=== PATIENT | male | born 1970 | race Hispanic/Latino ===

== ENCOUNTER 2017-08-06 21:27 | Inpatient (IN) | payer OTHER, SELFPAY ==
[2017-08-06 22:31] LABS: #Monocytes 0.3 thou/uL (0.11-0.59); #Neutrophils 5.8 thou/uL (1.40-6.50); %Basophils 0.3 % (0.0-1.0); %Eosinophils 0.2 % (0.0-10.0); %Lymphocytes 14.1 % (21.0-51.0); %Monocytes 4.6 % (0.0-10.0); %Neutrophils 80.9 % (42.0-75.0); Hemoglobin 16.1 g/dL (14.0-18.0); Mean Corpuscular HGB CONC 33.6 g/dL (32.0-36.0); Mean Corpuscular Hemoglobin 33.3 pg (27.0-31.0); Mean Corpuscular Volume 99.1 fl (80.0-94.0); Mean Platelet Volume 10.8 fL (7.4-10.4); Platelet Count 322 thou/uL (130-400); RBC Distribution Width 14.9 % (11.5-14.5); Red Blood Cell (RBC) Count 4.84 mill/uL (4.70-6.10); White Blood Cell (WBC) Count 7.2 thou/uL (4.8-10.8)
[2017-08-06 23:57] LABS: Base Excess-Venous -6.9 mmol/L (0 (+/- 2.5)); Bicarbonate (HCO3v) 18.5 mmol/L (1.0-85.0); CO2 Tension (PvCO2) 36.4 mmHg (41.0-51.0); Calcium, Ionized 1.07 mmol/L (1.12-1.32); Potassium 5.1 mmol/L (3.4-4.7); T. Carbon Dioxide 19.7 mmol/L (1.0-85.0); pH (Venous) 7.315 (7.35-7.45); vO2 Saturation-calc 60.7 % (94-98)
[2017-08-07 00:10] LABS: Albumin 4.3 g/dL (3.5-5.0)
[2017-08-07 00:11] LABS: Chloride 92 mmol/L (98-107); Potassium 5.1 mmol/L (3.5-5.1); Sodium 135 mmol/L (136-145)
[2017-08-07 00:13] LABS: Globulin 3.4 g/dL (2.4-3.5); Protein, Total 7.7 g/dL (6.0-8.3)
[2017-08-07 00:14] LABS: Anion Gap 31 mmol/L (10-20); Bilirubin, Total 0.5 mg/dL (0.2-1.2); Carbon Dioxide 17 mmol/L (22-29)
[2017-08-07 00:15] LABS: Alkaline Phosphatase 91 U/L (40-150)
[2017-08-07 00:16] LABS: BUN (Urea Nitrogen) 16 mg/dL (8.9-20.6); Calc. Creatinine Clearance 0 mL/min (70-130); Estimated GFR-MDRD 40
[2017-08-07 00:18] LABS: ALT (SGPT) 17 U/L (8-55); AST (SGOT) 10 U/L (5-34); Lipase 29 U/L (8-78)
[2017-08-07] MEDS ORDERED: Insulin Regular 300 UNITS/3 ML VIAL ONE ×2 (00:19→00:28)
[2017-08-07] MEDS ORDERED: Insulin Regular 100 units/100 ml in NS IVPB SCH (00:30)
[2017-08-07] MEDS ORDERED: Mag-Al 1200 mg/1200 mg/30 ML UDCUP ONE (00:34)
[2017-08-07] MEDS ORDERED: Lidocaine Viscous Sol 2% 15 ml UD Cup ONE (00:34)
--- NOTE | 2017-08-07 00:49 | PDOC.FPRHP ---
- History of Present Illness Chief Complaint: weakness History of Present Illness: This is a 46 y/o M with no PMHx or prior medical care who presents to the ED due to weakness that had been going on for 3 weeks. The patient reports that he just hasn't been feeling well and has lost about 20 pounds in that time period. The patient reports that he got acutely worse in the past 3 days where he had nausea, vomiting, blurry vision, polyuria, polydipsia, chills, abdominal pain, and reports that it has been harder to catch his breath. The patient had never had this happen before. He has been able to keep liquids down, but no solid foods. He reports that his abdominal pain is in the epigastric region and has been constant over the past 3 days, but was worse after eating. The patient went to a clinic to be evaluated for this today and was told he had diabetes, which he did not know about, but he was not given any medication. He denies any fevers. ED Course: The patient was evaluated in the ED by Dr. Orozco and Dr. Gonzalez and was given Humulin 5 units, Novolin gtt, NS 3L, GI cocktail. - Allergies/Adverse Reactions Allergies Allergy/AdvReac Type Severity Reaction Status Date / Time No Known Drug Allergies Allergy Unverified 08/07/ 00:20 - Home Medications Comments: None - History PMHx: No known PMHx PSHx: None FHx: Mom - DM Social: Drinks more than 5 tall boy beers per day, last drink was on Sunday due to the N/V. Smokes 12 cigarettes/day since he was 19 y/o. PCP: none - Review of Systems General: reports: fever/chills (reports chills, denies fever), weight/appetite/ sleep changes (reports weight and appetite changes), fatigue Eyes: reports: vision changes. denies: eye pain ENT: reports: nasal congestion, rhinorrhea Respiratory: reports: shortness of breath. denies: cough Cardiovascular: denies: chest pain, edema Gastrointestinal: reports: nausea, vomiting, abdominal pain. denies: diarrhea, constipation Genitourinary: reports: polyuria. denies: dysuria Skin: denies: rashes, lesions Musculoskeletal: denies: pain, tenderness Neurological: denies: numbness, seizure - Vital signs BP: 117/78 HR: 88 RR: 16 Tmax: 97.7 Pox: 99% on RA Wt: 47.17kg - Physical Exam Constitutional: NAD, awake, alert and oriented, well developed HEENT: normocephalic and atraumatic, PERRLA, EOMI, grossly normal vision, grossly normal hearing, normal nasal mucosa, MMM, oropharynx clear, other (mild scleral icterus, scaring of the R TM) Neck: supple, no LAD Heart: RRR, normal S1/S2, no murmurs/rubs/gallops, pulses present, no edema Lungs: CTAB, no respiratory distress, good air movement, no rales/rhonchi, no wheezing Abdomen: soft (mildly tender to palpation diffusely, no rebound or guarding), bowel sounds present, no masses/distention Musculoskeletal: normal structure, normal tone Neurological: no focal deficit, CN II-XII intact Skin: good turgor, capillary refill <2 seconds Psychiatric: normal mood and affect, good judgment and insight, intact recent and remote memory FMR H&P: Results - Labs Result Diagrams: 08/06/17 20:19 08/06/17 23:47 Lab results: WBC 7.2 thou/uL (4.8-10.8) 08/06/17 20:19 Hgb 16.1 g/dL (14.0-18.0) 08/06/17 20:19 Hct 48.0 % (42.0-52.0) 08/06/17 20:19 MCV 99.1 fl (80.0-94.0) H 08/06/17 20:19 Plt Count 322 thou/uL (130-400) 08/06/17 20:19 Neutrophils % 80.9 % (42.0-75.0) H 08/06/17 20:19 VBG pCO2 36.4 mmHg (41.0-51.0) L 08/06/17 23:56 VBG pO2 34.0 mmHg (35.0-45.0) L 08/06/17 23:56 Sodium 135 mmol/L (136-145) L 08/06/17 23:47 Potassium 5.1 mmol/L (3.5-5.1) 08/06/17 23:47 Chloride 92 mmol/L (98-107) L 08/06/17 23:47 Carbon Dioxide 17 mmol/L (22-29) L 08/06/17 23:47 BUN 16 mg/dL (8.9-20.6) 08/06/17 23:47 Creatinine 1.80 mg/dL (0.6-1.3) H 08/06/17 23:47 Calcium 10.0 mg/dL (7.8-10.44) 08/06/17 23:47 Total Bilirubin 0.5 mg/dL (0.2-1.2) 08/06/17 23:47 AST 10 U/L (5-34) 08/06/17 23:47 ALT 17 U/L (8-55) 08/06/17 23:47 Alkaline Phosphatase 91 U/L (40-150) 08/06/17 23:47 Serum Total Protein 7.7 g/dL (6.0-8.3) 08/06/17 23:47 Albumin 4.3 g/dL (3.5-5.0) 08/06/17 23:47 Lipase 29 U/L (8-78) 08/06/17 23:47 - EKG Interpretation EKG: NSR with rate 79, Rightward axis, non-specific T wave changes FMR H&P: A/P - Problem List (1) DKA (diabetic ketoacidoses) Current Visit: Yes Status: Acute Code(s): E13.10 - OTH DIABETES MELLITUS WITH KETOACIDOSIS WITHOUT COMA Qualifiers: Diabetes mellitus type: type 2 Diabetes mellitus complication detail: without coma Qualified Code(s): E11.10 - Type 2 diabetes mellitus with ketoacidosis without coma (2) Alcohol abuse Current Visit: Yes Status: Acute Code(s): F10.10 - ALCOHOL ABUSE, UNCOMPLICATED (3) Tobacco abuse Current Visit: Yes Status: Acute Code(s): Z72.0 - TOBACCO USE (4) PRICILA (acute kidney injury) Current Visit: Yes Status: Acute Code(s): N17.9 - ACUTE KIDNEY FAILURE, UNSPECIFIED (5) Gastritis Current Visit: Yes Status: Acute Code(s): K29.70 - GASTRITIS, UNSPECIFIED, WITHOUT BLEEDING Qualifiers: Gastritis type: alcoholic Chronicity: unspecified Gastritis bleeding: without bleeding Qualified Code(s): K29.20 - Alcoholic gastritis without bleeding - Plan DKA The patient has no h/o diabetes. This is likely type II due to the patient's age , but cannot rule out type I. No signs/symptoms of infection at this time, so unknown trigger. Initial labs showed Anion gap 26, Glucose 784, beta- hydroxybutyrate 11.8. -DKA protocol, aggressive fluids and insulin gtt. Will continue insulin gtt until anion gap closes. -Accuchecks q1h -BMP's q4h -Replete electrolytes prn -Check mag and phosphorous -A1c -UA, CXR to r/o infection -Consult case management to help patient with diabetic supplies, medications, establishing with PCP as uninsured -Consider checking c-peptide to r/o DMI if patient appears to respond accordingly PRICILA This is likely 2/2 dehydration with DKA -Will give aggressive fluids -Repeat BMP Alcohol Abuse The patient drinks >5 tall boy beers each day. Last drink was Sunday evening prior to admission. No signs/symptoms of withdrawal at this time. -ASE protocol -Thiamine, folate, multivitamin -UDS -Counseling about cessation Tobacco Abuse -Nicoderm patch -Counseling about cessation Abdominal Pain This is likely 2/2 Alcoholic Gastritis, lipase and liver enzymes were WNL. -Protonix -Serial abdominal exams and consider CT abdomen/pelvis if develops acute abdomen VTE ppx: Lovenox Code Status: Full Symptomatic meds will be provided Disposition/LOS: Admit to IMCU, length of stay likely 2 days FMR H&P: Upper Level - Plan Date/Time: 08/07/17 0047 Lorena Jhaveri, PGY3, have evaluated this patient and agree with findings/plan as outlined by manufacturing intern resident. Pertinent changes/additions are listed here. This is a 46yo HM w/ no PMH presents w/ 3 day history of nausea, vomiting, muscle cramps, abdominal pain, dizziness, just not feeling well. He went to the clinic and was told he had new diagnosis of diabetes and anemia, however did not receive any medications. Because he wasn't feeling better, he came to the ER. PE: Gen: Mild confusion. Non-toxic appearing. HEENT: R ear scaring. No tonsillar exudates or edema. CV: RRR. No murmurs Resp: Crackles RLL. No rhonchi or wheezing. Abd: Soft, generalized Ext: No edema or cyanosis. A/P: 1) DKA - DKA protocol with insulin, fluids and K supplementation as needed. Q4hr BMP's. F/u with CXR, UA and cultures. 2) New diagnosis of Diabetes - DKA protocol. Consult case management for diabetic supplies and medications for discharge. Will likely require insulin upon discharge. HgA1c 3) ETOH Abuse - Counselling on cessation. GABE protocol. Thiamine, Folate 4) Tobacco abuse - Nicotine patch PRN. Counselling on cessation. 5) PRICILA verses CKD - Fluids. F/u with BMP in am. 6) Abdominal pain - likely 2/2 DKA. Serial abdominal exams. Consider CT abdomen if does not improve or worsens. Attending Addendum - Attending Addendum Date/Time: 08/07/17 0157 I personally evaluated the patient and discussed the management with Dr. Tejeda on 08/07/17. I agree with the History, Examination, Assessment and Plan documented above with any addition or exceptions noted below. Patient with new-onset DM and DKA. pH 7.3, K 5.1, Cr 1.8. Initial glucose 738 , improved to 430s with insulin bolus. On insulin drip now. Abdominal pain improved with PPI, no acute abdomen concerns. Continue to monitor. Initiate DKA protocol with insulin drip, aggressive fluid resuscitation, and close monitoring of electrolytes.
[2017-08-07 00:52] LABS: CKMB 1.2 ng/mL (0-6.6); Troponin I Less than 0.010 ng/mL (< 0.028)
[2017-08-07 01:33] LABS: Bilirubin Negative (Negative); Blood, Urine Negative (Negative); Clarity CLEAR (Clear); Glucose, Urine (Dipstick) >=1000 mg/dL (Negative); Leukocyte Negative (Negative); Nitrite Negative (Negative); Protein, Urine (Dipstick) Negative (Neg-Trace); Specific Gravity, Urine 1.033 (1.002-1.036); Urobilinogen 0.2 mg/dL (0.2-1.0)
[2017-08-07 01:42] LABS: Amphetamine Not Detected (NotDetected); Barbiturates Screen Not Detected (NotDetected); Benzodiazepine Screen Not Detected (NotDetected); Cocaine Metabolite Screen Not Detected (NotDetected); Medtox Control Line Valid? VALID (VALID); Medtox Reader # READER 4; Methadone Not Detected (NotDetected); Methamphetamine Not Detected (NotDetected); Opiate Screen Not Detected (NotDetected); Oxycodone Screen Not Detected (NotDetected); Phencyclidine (PCP) Not Detected (NotDetected); THC/Cannabinoid Screen Not Detected (NotDetected); Tricyclic Screen Not Detected (NotDetected)
[2017-08-07] MEDS ORDERED: Dextrose 5 %-0.45 % NaCl 1,000 ML IV PRN (01:45)
[2017-08-07] MEDS ORDERED: D5 1/2 NS w/20 mEq KCL 1,000 ML IV PRN (01:45)
[2017-08-07] MEDS ORDERED: Dextrose 5% in Water 1,000 ML IV PRN ×2 (01:45→08:57)
[2017-08-07] MEDS ORDERED: CCU Electrolyte Replacement 1 EACH IVPB SCH (01:45)
[2017-08-07] MEDS ORDERED: Sodium Chloride 0.9% 1,000 ML IV PRN ×4 (01:45)
[2017-08-07] MEDS ORDERED: Ondansetron HCl/PF 4 MG/2 ML Vial IVP PRN (01:45)
[2017-08-07] MEDS ORDERED: Dextrose 50% Abboject 50 ML SYRINGE SLOW IVP PRN ×2 (01:45→08:57)
[2017-08-07] MEDS ORDERED: NS 0.9% w/ 20 MEQ KCL 1,000 ML IV PRN ×2 (01:45)
[2017-08-07] MEDS ORDERED: Ondansetron ODT 4 MG TAB PO PRN (01:45)
[2017-08-07 01:49] LABS: Glucose 784 mg/dL (70-105)
[2017-08-07] MEDS ORDERED: Magnesium 2 GM/NS 0.9% 100 ML 2 GM in Premix Bag 1 BAG IVPB PRN (02:13)
[2017-08-07] MEDS ORDERED: Potassium Phosphate 15 MMOL in Sodium Chloride 0.9% 250 ML 250 ML IV PRN (02:13)
[2017-08-07] MEDS ORDERED: Potassium Phosphate 9 MMOL in Sodium Chloride 0.9% 100 ML IVPB PRN (02:13)
[2017-08-07] MEDS ORDERED: Potassium Phosphate 12 MMOL in Sodium Chloride 0.9% 250 ML 250 ML IV PRN (02:13)
[2017-08-07] MEDS ORDERED: CCU ELECTROLYTE REPLACEMENT PROTOCOL FS PRN (02:13)
[2017-08-07] MEDS ORDERED: Potassium Chloride 20 MEQ TAB PO PRN (02:13)
[2017-08-07] MEDS ORDERED: Potassium Chloride 40 MEQ in Sodium Chloride 0.9% 250 ML 250 ML IVPB PRN (02:13)
[2017-08-07] MEDS ORDERED: Potassium Chloride 40 MEQ in Premix Bag 1 BAG IVPB PRN (02:13)
[2017-08-07] MEDS ORDERED: Magnesium Oxide 400 MG TAB PO PRN ×2 (02:13)
[2017-08-07 02:20] LABS: Magnesium 2.3 mg/dL (1.6-2.6); Phosphorus 4.8 mg/dL (2.3-4.7)
[2017-08-07 02:20] LABS: Hemoglobin A1c 15.9 % (4.0-6.0)
[2017-08-07 03:37] LABS: #Lymphocytes 1.4 thou/uL (1.20-3.40); #Monocytes 0.3 thou/uL (0.11-0.59); #Neutrophils 4.2 thou/uL (1.40-6.50); %Basophils 0.7 % (0.0-1.0); %Eosinophils 0.4 % (0.0-10.0); %Lymphocytes 23.6 % (21.0-51.0); %Monocytes 5.6 % (0.0-10.0); %Neutrophils 69.8 % (42.0-75.0); Hemoglobin 13.7 g/dL (14.0-18.0); Mean Corpuscular HGB CONC 34.8 g/dL (32.0-36.0); Mean Corpuscular Hemoglobin 33.1 pg (27.0-31.0); Mean Platelet Volume 8.4 fL (7.4-10.4); Platelet Count 289 thou/uL (130-400); RBC Distribution Width 11.6 % (11.5-14.5); Red Blood Cell (RBC) Count 4.15 mill/uL (4.70-6.10)
[2017-08-07 03:50] LABS: Anion Gap 17 mmol/L (10-20); BUN (Urea Nitrogen) 12 mg/dL (8.9-20.6); Calc. Creatinine Clearance 0 mL/min (70-130); Calcium 9.4 mg/dL (7.8-10.44); Carbon Dioxide 24 mmol/L (22-29); Chloride 106 mmol/L (98-107); Estimated GFR-MDRD 61; Glucose 367 mg/dL (70-105); Potassium 3.6 mmol/L (3.5-5.1); Sodium 143 mmol/L (136-145)
--- NOTE | 2017-08-07 07:54 | RAD ---
PA AND LATERAL VIEWS OF CHEST: Date: 08/07/17 HISTORY: Cough. FINDINGS: The heart size is normal. The lungs are well expanded without focal areas of consolidation, pneumotho rax, or pleural effusions. No acute osseous abnormalities are seen. IMPRESSION: No radiographic evidence of acute cardiopulmonary process. POS: OFF
[2017-08-07 07:59] VITALS: BMI 18.3
[2017-08-07] MEDS ORDERED: FLU VACC QS2017-18 36 mo. & older 0.5 ML SYRINGE IM ONE (08:45)
[2017-08-07] MEDS ORDERED: Prevnar 13-Val Conj/PF 0.5 ML SYRINGE IM ONE (08:45)
[2017-08-07 08:58] LABS: Anion Gap 12 mmol/L (10-20); BUN (Urea Nitrogen) 10 mg/dL (8.9-20.6); Calc. Creatinine Clearance 57 mL/min (70-130); Calcium 8.9 mg/dL (7.8-10.44); Carbon Dioxide 27 mmol/L (22-29); Chloride 107 mmol/L (98-107); Estimated GFR-MDRD 77; Glucose 328 mg/dL (70-105); Potassium 3.9 mmol/L (3.5-5.1); Sodium 142 mmol/L (136-145)
[2017-08-07] MEDS ORDERED: Enoxaparin Sodium 30 MG/0.3 ML SYRINGE SC SCH (09:00)
[2017-08-07] MEDS ORDERED: metFORMIN 500 MG TAB PO SCH ×2 (09:30→17:00)
[2017-08-07] MEDS: Nicotine 14 MG PATCH TD SCH (09:52)
[2017-08-07] MEDS: Multivitamin W/ Minerals 1 TAB PO SCH (09:52)
[2017-08-07] MEDS: Folic Acid 1 MG TAB PO SCH (09:53)
[2017-08-07] MEDS ORDERED: Insulin Detemir 100 UNITS/ML 10 UNITS in Pre-Filled Syringe 1 EACH SC SCH ×2 (10:00→21:00)
[2017-08-07] MEDS: Dextrose 5 %-0.45 % NaCl 1,000 ML IV SCH ×2 (10:11→16:58)
--- NOTE | 2017-08-07 11:51 | CON ---
DATE OF CONSULTATION: 08/07/2017 SERVICE: Pulmonary Medicine. REASON FOR CONSULTATION: DKA. HISTORY OF PRESENT ILLNESS: The patient is a 46-year-old male with past medical history significant for type 2 diabetes mellitus. He suggests to me that this was diagnosed over 3 years ago. That being said, he has been on any medications. Unfortunately, he presented to the hospital with significant fatigue, and lack of energy. He had some nausea. He was having some episodes of dry heaving. He has been drinking a lot and peeing a lot. He has had some blurred vision. He presented to the Emergency Department and had fairly classic symptoms consistent with his hyperglycemic episode with diabetic ketoacidosis. Overnight, he was given an insulin drip and rapidly corrected his anion gap. He was rehydrated, and the patient started feeling much better. This morning, he has got an appetite back. He denies any current nausea, vomiting, chest discomfort, shortness of breath, and is feeling much improved. PAST MEDICAL HISTORY: Type 2 diabetes mellitus, not on any medications. PAST SURGICAL HISTORY: None. SOCIAL HISTORY: He drinks 5 large beers a day. He denies any illicit drugs. He smokes about half-pack a day and has a [id number] history of smoking. He has no exposures to chemicals, dust, or asbestos. He is frequently back and forth between [place]. FAMILY HISTORY: Noncontributory. ALLERGIES: No known drug allergies. MEDICATIONS: List of his inpatient medications were reviewed. Multiple updates were made at this time. REVIEW OF SYSTEMS: General, head, ears, eyes, nose, throat, cardiovascular, respiratory, GI, , musculoskeletal, neurologic, and skin is negative except as mentioned in the HPI. PHYSICAL EXAMINATION: VITAL SIGNS: Afebrile, pulse 57, blood pressure 113/63, respirations 18, saturation 100% on room air. GENERAL: The patient is awake and alert, in no apparent distress. LUNGS: Excellent air entry. There is no prolonged expiratory phase, wheezing, rhonchi, or crackles present. HEART: Normal rate, regular. ABDOMEN: Soft, nontender, nondistended. Bowel sounds are positive. MUSCULOSKELETAL: No cyanosis or clubbing. There is no pitting in the bilateral lower extremities. NEUROLOGIC: Grossly nonfocal. LABORATORY DATA: WBC 6.0, hemoglobin 13.7, platelets 289,000. PH 7.31, pCO2 of 36, pO2 of 34, this was on a VBG. Creatinine has improved to 1.03, BUN 10. Basic metabolic profile is otherwise unremarkable. His bicarbonate is normal, and anion gap is closed. Vitamin B12 is greater than 2000. Glucose is running in the low 300 range. Liver function studies are unremarkable. Troponin is negative. Hemoglobin A1c 15.9. Beta hydroxybutyrate is 11.8. Urine drug screen is otherwise unremarkable. IMAGING DATA: Chest x-ray demonstrates no acute cardiopulmonary abnormality is identified. Cardiac silhouette is slender. Excellent costophrenic angles. No evidence of cephalization or pulmonary vascular congestion. ASSESSMENT: 1. Type 2 diabetes mellitus. 2. Diabetic ketoacidosis. 3. Alcohol abuse. 4. Tobacco abuse. 5. Acute kidney injury, resolved. DISCUSSION AND PLAN: The patient is doing fantastic from a cardiovascular and respiratory perspective. We will put him on long-acting insulin. We will also start some p.o. medications now that he cleared his acute kidney injury. He has an appetite, so we will feed him for lunch. If he tolerates p.o., he can be transitioned out of the IMCU, 2 hours after his insulin drip was discontinued , which can be done until 2 hours after his Levemir goes in. Pulmonary Critical Care will continue to follow if he remains in house for the time being. 70 minutes have been devoted to this patient in various activities. I personally reviewed all imaging studies and laboratory data noted within this document. For fifty percent of this time, I was interacting with the patient at the bedside or coordinating care with the care team. For the remainder of the time I was immediately available to the patient in the hospital unit. DC
[2017-08-07] MEDS: Insulin NPH/Reg Insulin Hm 300 UNITS/3 ML VIAL SC SCH ×3 (12:13→21:10)
--- NOTE | 2017-08-07 15:02 | ADD-PRG ---
DATE OF SERVICE: 08/07/2017 Please add this as an addendum to the note of Dr. Paresh Roberts. Mr. Min is a 46-year-old male, who was admitted to the ER this morning with diabetic ket oacidosis. He had previously not been treated for type 2 diabetes and has a questionable history goi ng back 3 years of such. In the event, he was admitted with a blood glucose in excess of 700, bicarb jessica is 17, pH is 7.31, and a very elevated beta hydroxybutyrate. He was started on an insulin infu marilin, and by the time I saw him later this morning, he had much improved. He was awake, alert, eatin g breakfast, and in no distress. Currently, his blood pressure is 113/67, his pulse rate is 80 and regular, respirations are 13 and no t labored. He is afebrile. His current labs show a sodium of 142, potassium 3.9, chloride 107. His bicarbonate is now 27. His anion gap is closed at 12. Glucose is 328. Diabetic ketoacidosis is resolved. We will switch him to subcutaneous insulin and advance diet as nam martinez.
[2017-08-07] MEDS ORDERED: Insulin Regular 300 UNITS/3 ML VIAL SC SCH (16:30)
--- NOTE | 2017-08-07 18:27 | PDOC.EVN ---
Event Note - Event Note Event Note: After 820 showed that anion gap had closed and bicarb was 17 patient was allowed to eat. At this time wean of insulin drip was started. Patient was started on NPH because of insurance issues. He was started on 15U am dose, 5U pm dose.
[2017-08-07 20:19] LABS: Anion Gap 7 mmol/L (10-20); BUN (Urea Nitrogen) 8 mg/dL (8.9-20.6); Calc. Creatinine Clearance 82 mL/min (70-130); Calcium 8.7 mg/dL (7.8-10.44); Carbon Dioxide 30 mmol/L (22-29); Chloride 104 mmol/L (98-107); Estimated GFR-MDRD Greater than 90; Glucose 189 mg/dL (70-105); Potassium 3.6 mmol/L (3.5-5.1); Sodium 137 mmol/L (136-145)
[2017-08-08] MEDS: Dextrose 5 %-0.45 % NaCl 1,000 ML IV SCH ×2 (00:45→08:28)
[2017-08-08 05:24] LABS: #Lymphocytes 1.2 thou/uL (1.20-3.40); #Monocytes 0.4 thou/uL (0.11-0.59); #Neutrophils 4.9 thou/uL (1.40-6.50); %Basophils 0.7 % (0.0-1.0); %Eosinophils 0.8 % (0.0-10.0); %Lymphocytes 17.7 % (21.0-51.0); %Monocytes 5.7 % (0.0-10.0); %Neutrophils 75.2 % (42.0-75.0); Hemoglobin 12.6 g/dL (14.0-18.0); Mean Corpuscular HGB CONC 34.1 g/dL (32.0-36.0); Mean Corpuscular Hemoglobin 32.9 pg (27.0-31.0); Mean Corpuscular Volume 96.3 fl (80.0-94.0); Mean Platelet Volume 8.5 fL (7.4-10.4); Platelet Count 227 thou/uL (130-400); RBC Distribution Width 11.6 % (11.5-14.5); Red Blood Cell (RBC) Count 3.83 mill/uL (4.70-6.10); White Blood Cell (WBC) Count 6.5 thou/uL (4.8-10.8)
[2017-08-08 05:33] LABS: Anion Gap 6 mmol/L (10-20); BUN (Urea Nitrogen) 7 mg/dL (8.9-20.6); Calc. Creatinine Clearance 86 mL/min (70-130); Calcium 8.5 mg/dL (7.8-10.44); Carbon Dioxide 30 mmol/L (22-29); Chloride 104 mmol/L (98-107); Estimated GFR-MDRD Greater than 90; Glucose 212 mg/dL (70-105); Magnesium 1.8 mg/dL (1.6-2.6); Potassium 3.5 mmol/L (3.5-5.1); Sodium 136 mmol/L (136-145)
[2017-08-08] MEDS: Nicotine 14 MG PATCH TD SCH (05:59)
[2017-08-08] MEDS: HumaLOG 300 UNITS/3 ML VIAL SC PRN ×2 (06:03→12:15)
[2017-08-08] MEDS ORDERED: Insulin Regular 300 UNITS/3 ML VIAL SC SCH (07:30)
[2017-08-08] MEDS ORDERED: metFORMIN 500 MG TAB PO SCH (08:00)
[2017-08-08] MEDS: Multivitamin W/ Minerals 1 TAB PO SCH (08:28)
[2017-08-08] MEDS: Folic Acid 1 MG TAB PO SCH (08:28)
[2017-08-08] MEDS: Insulin NPH/Reg Insulin Hm 300 UNITS/3 ML VIAL SC SCH (08:29)
--- NOTE | 2017-08-08 08:58 | PDOC.FM ---
- Subjective Subjective: This morning patient complains of sore throat. He denies headache, abdominal pain, or vomiting. He is tolerating PO. He will need more diabetic education as he is not grasping it as of yet. - Objective Vital Signs & Weight: Vital Signs (12 hours) Temp Pulse Resp BP Pulse Ox 08/08/17 07:43 97.9 F 56 L 16 116/74 08/08/17 06:18 97.8 F 60 18 116/66 98 08/08/17 00:00 98.7 F 61 18 113/55 L 98 Most Recent Monitor Data Heart Rate from ECG 64 NIBP 113/69 NIBP BP-Mean 85 Respiration from ECG 15 SpO2 100 I&O: 08/07/17 08/08/17 08/09/17 06:59 06:59 06:59 Intake Total 2775 Output Total 1100 Balance 1675 Result Diagrams: 08/08/17 04:40 08/08/17 04:40 Phys Exam - Physical Examination Constitutional: NAD HEENT: PERRLA, moist MMs Neck: no nodes, full ROM Respiratory: no wheezing, clear to auscultation bilateral Cardiovascular: RRR, no significant murmur Gastrointestinal: soft, non-tender, no distention, positive bowel sounds Musculoskeletal: no edema, pulses present Neurological: non-focal, moves all 4 limbs Lymphatic: no nodes Psychiatric: normal affect, A&O x 3 Skin: no rash, cap refill <2 seconds Dx/Plan (1) PRICILA (acute kidney injury) Code(s): N17.9 - ACUTE KIDNEY FAILURE, UNSPECIFIED Status: Acute (2) Alcohol abuse Code(s): F10.10 - ALCOHOL ABUSE, UNCOMPLICATED Status: Acute (3) DKA (diabetic ketoacidoses) Code(s): E13.10 - OTH DIABETES MELLITUS WITH KETOACIDOSIS WITHOUT COMA Status : Acute Qualifiers: Diabetes mellitus type: type 2 Diabetes mellitus complication detail: without coma Qualified Code(s): E11.10 - Type 2 diabetes mellitus with ketoacidosis without coma (4) Gastritis Code(s): K29.70 - GASTRITIS, UNSPECIFIED, WITHOUT BLEEDING Status: Acute Qualifiers: Gastritis type: alcoholic Chronicity: unspecified Gastritis bleeding: without bleeding Qualified Code(s): K29.20 - Alcoholic gastritis without bleeding (5) Tobacco abuse Code(s): Z72.0 - TOBACCO USE Status: Acute - Plan Plan: DKA- resolved - A1c 15.9 - Gap resolved - accuchecks in low 200s - NPH 15U am , 5U PM -insulin naive before hospitalization - metformin 1,000mg BID, PRICILA- resolved - Cr to 0.68 -Will give aggressive fluids -Repeat BMP Alcohol Abuse The patient drinks >5 tall boy beers each day. Last drink was Sunday evening prior to admission. No signs/symptoms of withdrawal at this time. -ASE protocol -Thiamine, folate, multivitamin -UDS -Counseling about cessation Tobacco Abuse -Nicoderm patch -Counseling about cessation Abdominal Pain- resolved This is likely 2/2 Alcoholic Gastritis, lipase and liver enzymes were WNL. -Protonix VTE ppx: Lovenox Code Status: Full
[2017-08-08] MEDS ORDERED: Enoxaparin Sodium 40 MG/0.4 ML SYRINGE SC SCH (09:00)
--- NOTE | 2017-08-08 11:40 | ADD-PRG ---
DATE OF SERVICE: 08/08/2017 This is an addendum to the note of Dr. Paresh Roberts. Mr. Sylvester Min this morning he is awake, alert, in no distress. His bicarbonate and blood glucose levels are all back to normal. His DKA has completely resolved. We will arrange for instruction in his diabetic diet and medications in anticipation of discharge later today.
[2017-08-08 12:30] VITALS: BP 107/63; TEMP 97.8
[2017-08-08 15:22] LABS: Folate,Hemolysate 329.5 ng/mL (Not Estab.); Hematocrit 38.2 % (37.5-51.0); RBC Folate Test Component 863 ng/mL (>498)
--- NOTE | 2017-08-08 15:25 | DIS-2 ---
DATE OF ADMISSION: 08/07/2017 DATE OF DISCHARGE: 08/08/2017 RESIDENT: Dr. Paresh Roberts. ADMITTING ATTENDING: Dr. Arabella Garcia. DISCHARGE ATTENDING: Dr. Alen Lemus. CONSULTATIONS: Pulmonology. PROCEDURES: None. PRIMARY DIAGNOSIS: Diabetic ketoacidosis. SECONDARY DIAGNOSES: Alcoholism, acute kidney injury, tobacco abuse, abdominal pain. DISCHARGE MEDICATIONS: Metformin 1000 mg p.o. b.i.d., Novolin 70/30 15 units a.m. and 5 units p.m., glucometer, syringes, lancets. DISCONTINUED MEDICATIONS: None. HISTORY OF PRESENT ILLNESS AND HOSPITAL COURSE: This is a 46-year-old male with no past medical hist ory or prior medical care per his report, who presented to with weakness that had been going on for 3 weeks. He reported that he had had 20 pounds of weight loss in the last month or so. He reports, i n the last 3 days, he had nausea, vomiting, blurry vision, polyuria, polydipsia, chills, and abdomina l pain. He states that this had never happened before. He states that he went to a clinic to be felton luated earlier today and was told he had diabetes, but was not given any medications for the treatmen t. He denied any fevers, chills, or sweats. In the ER, he was given 5 units of Humulin and started on an insulin drip. He was found to be in diabetic ketoacidosis. The patient was admitted to the ICU and the DKA protocol was continued. By the morning, his anion ga p had closed. His sugars were running in the 200s-300s. The insulin drip was discontinued and he wa s started on 70/30 Humulin, because he is uninsured and we wanted to choose a medication, which he co uld afford outpatient. Over the next day, his BMPs were monitored closely. On the date of discharge , the patient's blood sugars were in the high 100s. He was eating and drinking fine. He denied any headache or abdominal pain. The patient received education from physician, nurses, pharmacist, and d ieticians. The patient is to follow up with [facility] in 3 days. A followup glucose and educat ion. DISPOSITION: Stable. DISCHARGE INSTRUCTIONS: 1. Location: Home. 2. Diet: Diabetic. 3. Activity: As tolerated. 4. Followup: [facility] in 2 days.
--- NOTE | 2017-09-13 15:28 | EKG ---
Test Reason : Blood Pressure : / mmHG Vent. Rate : 079 BPM Atrial Rate : 079 BPM P-R Int : 142 ms QRS Dur : 092 ms QT Int : 384 ms P-R-T Axes : 067 093 075 degrees QTc Int : 440 ms Normal sinus rhythm Rightward axis Early repolarization Peaked T waves Borderline ECG Confirmed by TINA SOLARES ([id number]), editor in chief TRACEE LAWLER ([id number]) on 09/13/2017 3:28:39 PM Referred By: Confirmed By:TINA SOLARES
== END 2017-08-08 15:30 | disposition home or self-care (01) | DRG 638 ==
LOC: ERS 21:27 → ERHOLD 08-07 00:38 → CCU 08-07 07:42 → T4-A 08-07 17:27
PROVIDERS: ADMIT Family Medicine; ATTEND Family Medicine
DX: E11.10 Type 2 diabetes mellitus with ketoacidosis without coma (principal); N17.9 Acute kidney failure, unspecified; F10.20 Alcohol dependence, uncomplicated; F17.210 Nicotine dependence, cigarettes, uncomplicated; Z79.4 Long term (current) use of insulin; K29.20 Alcoholic gastritis without bleeding; E86.0 Dehydration
CPT/HCPCS: 36415; 36416; 71046; 80048; 80053; 80306; 81003; 82010; 82330; 82553; 82607; 82747; 82803; 83036; 83690; 83735; 84100; 84484; 85025; 87081; 87430; 93005; 96360; 96361; 96365; 96366; 96376; A4216; J1650; J1815; J7050